=== PATIENT | female | born 1950 | race Caucasian/White ===

== ENCOUNTER 2016-08-25 19:14 | Emergency (ER) | payer MEDICARE, OTHER | END 2016-08-25 19:55 | disposition home or self-care (01) | DX: S90.822A Blister (nonthermal), left foot, initial encounter (principal); S91.302A Unspecified open wound, left foot, initial encounter; S90.821A Blister (nonthermal), right foot, initial encounter; S91.301A Unspecified open wound, right foot, initial encounter; X58.XXXA Exposure to other specified factors, initial encounter; L56.8 Other specified acute skin changes due to ultraviolet radiation; X32.XXXA Exposure to sunlight, initial encounter; Y92.89 Other specified places as the place of occurrence of the external cause; I10 Essential (primary) hypertension; Z86.718 Personal history of other venous thrombosis and embolism ==

== ENCOUNTER 2016-09-22 18:02 | Outpatient (CLI) | payer MEDICARE, OTHER | END 2016-09-22 18:03 | disposition EMS.NT | DX: Z03.89 Encounter for observation for other suspected diseases and conditions ruled out (principal); W03.XXXA Other fall on same level due to collision with another person, initial encounter; Y92.009 Unspecified place in unspecified non-institutional (private) residence as the place of occurrence of the external cause ==

== ENCOUNTER 2017-11-05 20:14 | Emergency (ER) | payer MEDICARE, OTHER ==
[2017-11-05 20:41] VITALS: BP 139/86
--- NOTE | 2017-11-05 21:32 | ED Physician Documentation ---
PD HPI SKIN - Stated complaint Stated Complaint: RASH ON BODY - Chief complaint Chief Complaint: Wound - History obtained from History obtained from: Patient - History of Present Illness Timing - onset: How many days ago (5 days ago) Timing - duration: Days Timing - details: Gradual onset Pain level max: 0 Pain level now: 0 Location: Scalp, RUE, LUE Quality / character: Burning Contributing factors: Unknown Similar symptoms before: Has not had sx before Recently seen: Not recently seen - Additional information Additional information: c/o rash left forearm which has spread locally and earlier this morning noted similar rash on right FA and forehead Review of Systems Constitutional: denies: Reviewed and negative Respiratory: reports: Reviewed and negative Skin: reports: Rash PD PAST MEDICAL HISTORY - Past Medical History Cardiovascular: Hypertension, Deep vein thrombosis - Past Surgical History 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 - Present Medications Home Medications: Ambulatory Orders Medication Instructions Recorded Confirmed Hydrochlorothiazide 25 mg PO DAILY 09/19/14 08/25/16 Propranolol [Inderal] 80 mg PO DAILY 09/19/14 08/25/16 Doxycycline Hyclate 50 mg PO BID 08/25/16 08/25/16 hydrOXYzine PAMOATE [Vistaril] 25 mg PO Q6H PRN #20 capsule 11/05/17 predniSONE [Prednisone] 40 mg PO DAILY #8 tablet 11/05/17 - Allergies Allergies/Adverse Reactions: Allergies Allergy/AdvReac Type Severity Reaction Status Date / Time No Known Drug Allergies Allergy Verified 09/19/14 16:52 - Social History Does the pt smoke?: No Smoking Status: Never smoker Does the pt drink ETOH?: Yes Does the pt have substance abuse?: No - Immunizations Immunizations are current?: Yes PD ED PE NORMAL - Vitals Vital signs reviewed: Yes - General General: Alert and oriented X 3, No acute distress, Well developed/nourished PD ED PE EXPANDED - Derm Derm: Other (Confluent erythema left FA, extensor surface only. Fainter confluent erythema on right FA, extensor surface only, as well as on cranial- most aspect of forehead and on frontoparietal scalp only where hair parts. These areas are nontender and not hot to touch. There is complete sparing of the area covered by her wristwatch on left FA with sharp margins both proximal and distal to the wristband that correlate precisely with the area covered by the watch) Results - Vitals Vitals: Oxygen O2 Source Room air PD MEDICAL DECISION MAKING - ED course Complexity details: considered differential, d/w patient ED course: Patient is on doxycycline for rosacea, and rash is only noted on extensor surfaces of FA and forehead and scalp. Notably, there is a distinct and complete sparing on the left FA where she wears her watch, and the scalp is affected only along the part of the hair, c/w photodermatitis which would be likely caused by the doxycycline and sun exposure. - Sepsis Event Vital Signs: Oxygen O2 Source Room air Departure - Departure Disposition: 01 Home, Self Care Clinical Impression: Photodermatitis Condition: Good Instructions: ED Dermatitis Non Specific Rash Prescriptions: hydrOXYzine PAMOATE [Vistaril] 25 mg PO Q6H PRN #20 capsule PRN Reason: Itching predniSONE [Prednisone] 40 mg PO DAILY #8 tablet Comments: Contact your supervisor lead burning to discuss follow-up. I suspect the rash is from sunlight exposure combined with the doxycycline you are taking, and I recommend you stop the doxycycline until and unless your doctor advises otherwise. Discharge Date/Time: 11/05/17 22:02
[2017-11-05] MEDS ORDERED: predniSONE 20 MG TABLET PO STA (21:47)
== END 2017-11-05 22:02 | disposition home or self-care (01) ==
LOC: ED 20:14
DX: L56.8 Other specified acute skin changes due to ultraviolet radiation (principal); L53.9 Erythematous condition, unspecified; L71.9 Rosacea, unspecified; I10 Essential (primary) hypertension
CPT/HCPCS: 99283; J7512

== ENCOUNTER 2018-08-03 08:00 | Outpatient (CLI) | payer MEDICARE, OTHER ==
[2018-08-03 18:31] LABS: HB2 TOTAL 11.1 g/dL; HEMOGLOBIN A1C 0.4 g/dL; HEMOGLOBIN A1C % 5.4 % (4.6-6.2)
[2018-08-03 18:51] LABS: ALBUMIN 3.8 g/dL (3.2-5.5); ALBUMIN/GLOBULIN RATIO 0.7 (1.0-2.2); BILIRUBIN,TOTAL 0.8 mg/dL (0.2-1.0); CALCIUM 9.7 mg/dL (8.5-10.3); CREATININE 0.9 mg/dL (0.4-1.0); TOTAL PROTEIN 9.2 g/dL (6.7-8.2)
[2018-08-03 18:58] LABS: BASOPHILS % (AUTO) 0.5 %; EOSINOPHILS % (AUTO) 0.4 %; HGB - HEMOGLOBIN 8.9 g/dL (12.0-16.0); LYMPHOCYTES # (AUTO) 1.4 10^3/uL (1.5-3.5); LYMPHOCYTES % (AUTO) 48.8 %; MEAN CORPUSCULAR HEMOGLOBIN 29.1 pg (27.0-31.0); MEAN CORPUSCULAR VOLUME 88.1 fL (81.0-99.0); MEAN PLATELET VOLUME 10.3 fL (7.9-10.8); MONOCYTES # (AUTO) 0.6 10^3/uL (0.0-1.0); MONOCYTES % (AUTO) 19.7 %; NEUTROPHILS # (AUTO) 0.9 10^3/uL (1.5-6.6); NEUTROPHILS % (AUTO) 30.6 %; PLT - PLATELET COUNT 184 10^3/uL (130-450); RED BLOOD COUNT 3.06 10^6/uL (4.20-5.40); RED CELL DISTRIBUTION WIDTH 15.5 % (12.0-15.0); WHITE BLOOD COUNT 2.9 x10^3/uL (4.8-10.8)
[2018-08-03 19:36] LABS: DIFFERENTIAL COMMENT MANUAL=AUTO DIFF; PLATELET ESTIMATE, MANUAL NORMAL (130-450,000) (NORMAL); PLATELET MORPHOLOGY NORMAL APPEARANCE (NORMAL)
== END 2018-08-03 23:59 | disposition home or self-care (01) ==
LOC: LAB.F 08:00
PROVIDERS: ATTEND Physician Assistant Medical
DX: R23.8 Other skin changes (principal); I10 Essential (primary) hypertension; R73.01 Impaired fasting glucose
CPT/HCPCS: 36415; 80053; 83036; 85025

== ENCOUNTER 2018-08-17 08:36 | Outpatient (CLI) | payer MEDICARE, OTHER ==
--- NOTE | 2018-08-17 12:54 | Mammography Report ---
Reason: AXILLARY LYMPHADENOPATHY Procedure Date: 08/17/2018 Accession Number: [id number] / [id number] Procedure: ROSENDO - Diagnostic Dig Bilat CPT Code: FULL RESULT: EXAM: Diagnostic Dig Bilat DATE: 08/17/2018 9:52 AM CLINICAL HISTORY: Diagnostic examination. Axillary lymphadenopathy, palpable. TECHNIQUE: (B) - Bilateral CC, laterally exaggerated CC, MLO views were obtained. COMPARISON: 01/02/2011 through 11/28/2009. PARENCHYMAL PATTERN: (A) - The breast(s) demonstrate(s) scattered fibroglandular densities. FINDINGS: The MLO images demonstrate bulky axillary lymphadenopathy bilaterally. Biopsy clips are seen in both breasts. There are no suspicious masses, calcifications, or areas of distortion within the glandular breast on either side. Focused bilateral axillary ultrasound is performed which demonstrates bulky lymphadenopathy, accessible to ultrasound-guided biopsy. IMPRESSION: Highly suggestive for malignancy. BI-RADS category 5. RECOMMENDATION: (BIOPSY) - BI-RADS CATEGORY: (5) - Highly suggestive for malignancy. STANDARD QUALIFYING STATEMENTS: 1. This examination was not reviewed with the aid of Computer-Aided Detection (CAD). 2. A negative or benign imaging report should not preclude biopsy if clinically suspicious findings are present. 3. Dense breasts may obscure an underlying neoplasm. 4. This examination was reviewed with the aid of 3D breast imaging (tomosynthesis).
== END 2018-08-17 08:37 | disposition home or self-care (01) ==
LOC: DI 08:36
PROVIDERS: ATTEND Physician Assistant Medical
DX: R59.0 Localized enlarged lymph nodes (principal)
CPT/HCPCS: 76642; 77066

== ENCOUNTER 2018-08-31 11:32 | Outpatient (CLI) | payer MEDICARE, OTHER ==
[2018-08-31] MEDS ORDERED: BUFFERED LIDOCAINE 10 ML SYRINGE ONE (13:28)
[2018-08-31] MEDS ORDERED: BUPIVACAINE 0.5%-EPI 1:200000 PF 10 ML VIAL ONE (13:29)
--- NOTE | 2018-09-02 16:12 | Ultrasound Report ---
Reason: ENLARGED LYMPH NODES Procedure Date: 08/31/2018 Accession Number: [id number] / [id number] Procedure: US - Needle Bx Lymph Node CPT Code: FULL RESULT: PROCEDURE: Ultrasound-guided needle biopsy right axillary lymph node mass. CLINICAL DATA: Targeted lymphadenopathy in the right axilla as seen on mammography. Informed consent was obtained. Using standard aseptic technique, both 1% buffered lidocaine and Sensorcaine were injected into the axilla for local anesthesia. A small damian was made in the skin with a #11 blade. A 18-gauge [employer] biopsy device was used to obtain 4 specimens. The wound was dressed and ice applied. The patient was observed for approximately 15 minutes, then was discharged from diagnostic imaging Department in good condition following instructions on wound care and obtaining biopsy results. The patient is scheduled to receive the biopsy results from the referring physician. The tissue was sent for histologic analysis. IMPRESSION: Ultrasound-guided biopsy of right axillary lymphadenopathy. AN ADDENDUM WILL BE MADE TO THIS REPORT WHEN PATHOLOGY IS REVIEWED TO ESTABLISH CONCORDANCE.
== END 2018-08-31 11:33 | disposition home or self-care (01) ==
LOC: DI 11:32
PROVIDERS: ATTEND Physician Assistant Medical
DX: C85.84 Other specified types of non-Hodgkin lymphoma, lymph nodes of axilla and upper limb (principal)
CPT/HCPCS: 38505

== ENCOUNTER 2019-05-15 09:38 | Emergency (ER) | payer MEDICARE, OTHER ==
[2019-05-15] MEDS ORDERED: SODIUM CHLORIDE 0.9% 1,000 ML IV ONE (10:14)
[2019-05-15] MEDS ORDERED: KETOROLAC 30 MG/ML VIAL IVP STA (10:14)
--- NOTE | 2019-05-15 10:15 | ED Physician Documentation ---
History of Present Illness - Stated complaint Stated Complaint: FEVER/NECK/HEAD PX - Chief complaint Chief Complaint: General - History obtained from History obtained from: Patient - Additonal information Additional information: This is a 68-year-old woman who presents with her son complaints that about 3 days ago she developed what she thought was just a stiff neck but it seems to be getting worse to the point now that she can even move it. There was not any unusual activity that she can place this on. She phoned her oncology team at the cancer center in [place] yesterday and they told her that she should follow- up with her primary care provider for pain management. She is just been using extra strength Tylenol at home. She does have a history of non-Hodgkin's lymphoma and monitors for fevers due to that she had a fever last night of 101.7. It was 99.3 this morning. She is not currently on chemotherapy. She does have a headache that is wrapping up over the back of her head. Her legs feel little weak and just shaky from the pain. No pain radiating down the arms. She denies any recent sore throat, congestion, cough, dysuria, abdominal pain, nausea or vomiting. Review of Systems Constitutional: reports: Fever Ears: denies: Ear pain Nose: denies: Rhinorrhea / runny nose, Congestion Throat: denies: Sore throat Cardiac: denies: Palpitations Respiratory: denies: Cough GI: denies: Abdominal Pain, Nausea : denies: Dysuria Musculoskeletal: reports: Neck pain. denies: Extremity pain Neurologic: reports: Headache. 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 - Present Medications Home Medications: Ambulatory Orders Medication Instructions Recorded Confirmed Hydrochlorothiazide 25 mg PO DAILY 09/19/14 05/15/19 Propranolol [Inderal] 80 mg PO DAILY 09/19/14 05/15/19 Cetirizine [ZyrTEC] 10 mg PO DAILY PRN 08/26/18 05/15/19 Multivit-Min/Iron Fum/Folic AC 2 tab PO DAILY 05/01/19 01/18/20 [Yjitp-Owajtla-Eyatcgun Tablet] Cyclobenzaprine [Flexeril] 10 mg PO TID PRN #20 tablet 05/15/19 Hydrocodone/Acetaminophen 1 - 2 each PO Q6H PRN #10 tablet 05/15/19 [Hydrocodon-Acetaminophen 5-325] - Allergies Allergies/Adverse Reactions: Allergies Allergy/AdvReac Type Severity Reaction Status Date / Time tetracycline Allergy Unknown Verified 05/15/19 09:47 - Social History Does the pt smoke?: No Smoking Status: Never smoker Does the pt drink ETOH?: Yes Does the pt have substance abuse?: No - Immunizations Immunizations are current?: Yes PD ED PE NORMAL - Vitals Vital signs reviewed: Yes - General General: Alert and oriented X 3, No acute distress, Well developed/nourished, Other (Patient is noted to be sitting on the exam table very stiffly not turning her head from side to side.) - HEENT HEENT: Atraumatic, PERRL, EOMI, Moist mucous membranes, Pharynx benign - Neck Neck: Other (There is tenderness with palpation through the levator scapula and trapezius muscles bilaterally to the base of the calvarium across the occipital ridge. There is no rash. Limited range of motion due to this pain.). No: No adenopathy (There is a multitude of enlarged lymph nodes anterior, posterior cervical and supraclavicular consistent with her non-Hodgkin's lymphoma. These have been present prior to today.) - Cardiac Cardiac: RRR, No murmur - Respiratory Respiratory: No respiratory distress, Clear bilaterally - Abdomen Abdomen: Normal bowel sounds, Soft - Back Back: No CVA TTP - Derm Derm: No rash - Extremities Extremities: No deformity, No tenderness to palpate, Normal ROM s pain, No edema - Neuro Neuro: Alert and oriented X 3, medical charge entry specialist 2-12 intact, No motor deficit, No sensory deficit, Normal speech - Psych Psych: Normal mood, Normal affect Results - Vitals Vitals: Vital Signs - 24 hr 05/15/19 05/15/19 09:44 12:24 Temperature 36.9 C 37.6 C H Heart Rate 86 67 Respiratory 16 24 Rate Blood Pressure 167/90 H 165/68 H O2 Saturation 100 99 Oxygen O2 Source Room air - Labs Labs: Laboratory Tests 05/15/19 05/15/19 05/15/19 10:27 10:27 10:27 WBC 6.1 RBC 2.73 L Hgb 8.5 L Hct 25.7 L MCV 94.1 MCH 31.1 H MCHC 33.1 RDW 16.0 H Plt Count 270 MPV 9.5 Neut # (Auto) Not Reportable Lymph # (Auto) Not Reportable [place] # (Auto) Not Reportable Eos # (Auto) Not Reportable Baso # (Auto) Not Reportable Absolute Nucleated RBC Not Reportable Total Counted 100 Band Neuts % (Manual) 3 Abnorm Lymph % (Manual) 4 Metamyelocytes % 1 H Nucleated RBC % Not Reportable Neutrophils # (Manual) 2.4 Lymphocytes # (Manual) 3.1 Monocytes # (Manual) 0.5 Eosinophils # (Manual) 0.1 Basophils # (Manual) 0.0 Differential Comment MANUAL DIFFERENTIAL Manual Slide Review Indicated WBC Morphology NORMAL APPEARANCE Platelet Estimate NORMAL (130-450,000) Platelet Morphology 1+ LARGE PLATELETS RBC Morph Micro Appear 1+ [place] Sodium 138 Potassium 4.1 Chloride 107 Carbon Dioxide 21 Anion Gap 10.0 BUN 25 H Creatinine 1.0 Estimated GFR (MDRD) 55 L Glucose 112 H Lactic Acid 1.2 Calcium 9.9 Total Bilirubin 0.9 AST 36 ALT < 10 L Alkaline Phosphatase 66 Total Protein 10.1 H Albumin 3.5 Globulin 6.6 H Albumin/Globulin Ratio 0.5 L Lipase 59 H Urine Color Urine Clarity Urine pH Ur Specific [place] Urine Protein Urine Glucose (UA) Urine Ketones Urine Occult Blood Urine Nitrite Urine Bilirubin Urine Urobilinogen Ur Leukocyte Esterase Urine RBC Urine WBC Ur Squamous Epith Cells Urine Bacteria Ur Microscopic Review Urine Culture Comments 05/15/19 11:00 WBC RBC Hgb Hct MCV MCH MCHC RDW Plt Count MPV Neut # (Auto) Lymph # (Auto) [place] # (Auto) Eos # (Auto) Baso # (Auto) Absolute Nucleated RBC Total Counted Band Neuts % (Manual) Abnorm Lymph % (Manual) Metamyelocytes % Nucleated RBC % Neutrophils # (Manual) Lymphocytes # (Manual) Monocytes # (Manual) Eosinophils # (Manual) Basophils # (Manual) Differential Comment Manual Slide Review WBC Morphology Platelet Estimate Platelet Morphology RBC Morph Micro Appear Sodium Potassium Chloride Carbon Dioxide Anion Gap BUN Creatinine Estimated GFR (MDRD) Glucose Lactic Acid Calcium Total Bilirubin AST ALT Alkaline Phosphatase Total Protein Albumin Globulin Albumin/Globulin Ratio Lipase Urine Color YELLOW Urine Clarity CLEAR Urine pH 5.5 Ur Specific [place] 1.025 Urine Protein 100 H Urine Glucose (UA) NEGATIVE Urine Ketones NEGATIVE Urine Occult Blood MODERATE H Urine Nitrite NEGATIVE Urine Bilirubin NEGATIVE Urine Urobilinogen 0.2 (NORMAL) Ur Leukocyte Esterase NEGATIVE Urine RBC 0-5 Urine WBC 0-3 Ur Squamous Epith Cells MOD Squamous H Urine Bacteria Few Ur Microscopic Review INDICATED Urine Culture Comments NOT INDICATED - Rads (name of study) cxr Radiology: EMP read contemporaneously (Negative acute), See rad report PD MEDICAL DECISION MAKING - ED course Complexity details: reviewed results, re-evaluated patient, d/w patient, d/w family ED course: Patient was initially given 30 of Toradol IV as well as a Flexeril 10 mg. Her hemoglobin is only 8.5 which is chronic. White blood cell count is normal. Urine showed some blood but there are a lot of squamous epithelial cells and no sign of infection. Her history and clinical exam certainly are not consistent with any type of meningitis. She reports 0 relief with the Toradol and Flexeril although she is clearly moving her neck a little bit more when I went in to reevaluate her. She was given hydrocodone tablet and will reassess after that. Patient is getting some relief with the hydrocodone. She reports another fever here but it was only 99. At this point I do not have a clear etiology for any type of infectious process. Recommended that we monitor her temperature at home. She will be given a prescription for Flexeril and a few hydrocodone tablets and follow-up with her primary care provider on Friday if she still having pain. If she has recurrent fevers then she should be reevaluated. She states understanding. Departure - Departure Disposition: Home, Self Care Clinical Impression: Cervical muscle strain Qualifiers: Encounter type: initial encounter Qualified Code(s): S16.1XXA - Strain of muscle, fascia and tendon at neck level, initial encounter Condition: Good Instructions: ED Neck Pain No Trauma Follow-Up: Lizzette Beaulieu PA-C [Primary Care Provider] - Prescriptions: Cyclobenzaprine [Flexeril] 10 mg PO TID PRN #20 tablet PRN Reason: Spasms Hydrocodone/Acetaminophen [Hydrocodon-Acetaminophen 5-325] 1 - 2 each PO Q6H PRN #10 tablet PRN Reason: pain Comments: I would apply ice to the back your neck and the back your head. Take the Flexeril as a muscle relaxer if it is not giving you adequate pain relief after 30 to 60 minutes you can add a hydrocodone tablet but do not drive or operate machinery when you are taking those medications. Also the hydrocodone contains Tylenol so he should not use additional Tylenol. Continue to watch her temperature at home. If you have recurrent fevers over 100.5 you should be reevaluated. Follow-up with your primary care provider on Friday if you are still experiencing neck pain.
[2019-05-15] MEDS ORDERED: CYCLOBENZAPRINE 10 MG TABLET PO STA (10:18)
[2019-05-15 10:39] LABS: BASOPHILS % (AUTO) 0.7 %; EOSINOPHILS % (AUTO) 0.3 %; HGB - HEMOGLOBIN 8.5 g/dL (12.0-16.0); LYMPHOCYTES % (AUTO) 42.4 %; MEAN CORPUSCULAR HEMOGLOBIN 31.1 pg (27.0-31.0); MEAN CORPUSCULAR HGB CONC 33.1 g/dL (32.0-36.0); MEAN CORPUSCULAR VOLUME 94.1 fL (81.0-99.0); MEAN PLATELET VOLUME 9.5 fL (7.9-10.8); MONOCYTES % (AUTO) 24.1 %; NEUTROPHILS % (AUTO) 31.8 %; PLT - PLATELET COUNT 270 10^3/uL (130-450); RED BLOOD COUNT 2.73 10^6/uL (4.20-5.40); WHITE BLOOD COUNT 6.1 x10^3/uL (4.8-10.8)
--- NOTE | 2019-05-15 10:46 | XRAY Report ---
Reason: cough Procedure Date: 05/15/2019 Accession Number: [id number] / [id number] Procedure: XR - Chest 2 View X-Ray CPT Code: 14884 Final Report FULL RESULT: EXAM: CHEST RADIOGRAPHY EXAM DATE: 05/15/2019 10:37 AM. CLINICAL HISTORY: Cough. COMPARISON: None. TECHNIQUE: 2 views. FINDINGS: Lungs/Pleura: Central bronchial wall thickening noted. No superimposed focal consolidation. No pleural effusion or pneumothorax. Mediastinum: Heart and mediastinal contours are unremarkable. Other: None. IMPRESSION: 1. Central bronchial wall thickening could reflect underlying reactive airways or bronchitis. No evidence for pneumonia. RADIA
[2019-05-15 10:48] LABS: ALBUMIN 3.5 g/dL (3.2-5.5); ALBUMIN/GLOBULIN RATIO 0.5 (1.0-2.2); ALKALINE PHOSPHATASE 66 IU/L (42-121); ALT ALANINE AMINOTRANSFERASE < 10 IU/L (10-60); AST ASPARTATE AMINOTRANSFERASE 36 IU/L (10-42); BILIRUBIN,TOTAL 0.9 mg/dL (0.2-1.0); BUN - BLOOD UREA NITROGEN 25 mg/dL (6-20); CALCIUM 9.9 mg/dL (8.5-10.3); CARBON DIOXIDE - CO2 21 mmol/L (21-32); CHLORIDE 107 mmol/L (101-111); GFR - MDRD 55 (>89); GLUCOSE 112 mg/dL (70-100); LIPASE 59 U/L (22-51); SODIUM 138 mmol/L (135-145); TOTAL PROTEIN 10.1 g/dL (6.7-8.2)
[2019-05-15 11:38] LABS: BILIRUBIN,URINE NEGATIVE (NEGATIVE); GLUCOSE, URINE (UA) NEGATIVE (NEGATIVE); KETONES,URINE (UA) NEGATIVE (NEGATIVE); LEUKOCYTE ESTERASE, URINE NEGATIVE (NEGATIVE); NITRITE,URINE NEGATIVE (NEGATIVE); OCCULT BLOOD,URINE MODERATE (NEGATIVE); PH,URINE 5.5 PH (5.0-7.5); PROTEIN,URINE 100 mg/dL (NEGATIVE); UROBILINOGEN,URINE 0.2 (NORMAL) E.U./dL (NORMAL)
[2019-05-15 11:49] LABS: ABNORMAL LYMPHS % (MANUAL) 4 %; BAND NEUTROPHILS % (MANUAL) 3 %; EOSINOPHILS # (MANUAL) 0.1 10^3/uL (0-0.7); LYMPHOCYTES # (MANUAL) 3.1 10^3/uL (1.5-3.5); LYMPHOCYTES % (MANUAL) 46 %; METAMYELOCYTES % (MANUAL) 1 %; MONOCYTES # (MANUAL) 0.5 10^3/uL (0.0-1.0)
[2019-05-15 11:51] LABS: PLATELET ESTIMATE, MANUAL NORMAL (130-450,000) (NORMAL)
[2019-05-15 11:52] LABS: PLATELET MORPHOLOGY 1+ LARGE PLATELETS (NORMAL)
[2019-05-15 11:53] LABS: DIFFERENTIAL COMMENT MANUAL DIFFERENTIAL; RBC MORPHOLOGY (MULTIPLE) 1+ ROULEAUX (NORMAL)
[2019-05-15 11:57] LABS: CLARITY,URINE CLEAR (CLEAR)
[2019-05-15 11:58] LABS: BACTERIA,URINE Few /HPF (None Seen); RBC,URINE 0-5 /HPF (0-5); SQUAMOUS EPITHELIAL CELL,UR MOD Squamous (<= Few)
[2019-05-15] MEDS ORDERED: HYDROcod/ACETAM 5/325 MG TABLET PO STA (12:35)
[2019-05-15 14:34] VITALS: BP 155/71
== END 2019-05-15 14:44 | disposition home or self-care (01) ==
LOC: ED 09:38
DX: S16.1XXA Strain of muscle, fascia and tendon at neck level, initial encounter (principal); X58.XXXA Exposure to other specified factors, initial encounter; C85.91 Non-Hodgkin lymphoma, unspecified, lymph nodes of head, face, and neck; I10 Essential (primary) hypertension
CPT/HCPCS: 36415; 71046; 80053; 81001; 83605; 83690; 85025; 87040; 96361; 96374; 99284; A9270; 81003; 87086

== ENCOUNTER 2019-06-02 11:25 | Emergency (ER) | payer MEDICARE, OTHER ==
[2019-06-02] MEDS ORDERED: SODIUM CHLORIDE 0.9% 1,973.13 ML IV STA (11:47)
--- NOTE | 2019-06-02 11:51 | ED Physician Documentation ---
History of Present Illness - Stated complaint Stated Complaint: HEAD/NECK PX - Chief complaint Chief Complaint: General - History obtained from History obtained from: Patient (Patient is a 68-year-old recently started on chemotherapy for lymphoma. Her first regimen was last Friday and . She recently was admitted to [facility] for gastric inflammation at that time was discovered to have anemia and had blood transfusion. She is here per her oncologist recommendation because of the development of neck pain with limited range of motion. There is worry about infection. Patient noticed this similar neck pain about 2 weeks ago, as she was treated with antibiotic and [facility] for the GI infection or inflammation, her neck pain improve. According to the patient and family member at bedside, there was a low-grade fever of 99 at home. This was yesterday. In the emergency room patient is alert and oriented x3. GCS 15. Not in distress.), Family - History of Present Illness Timing: How many days ago (2) Review of Systems Ten Systems: 10 systems reviewed and negative Constitutional: reports: Fever, Reviewed and negative Eyes: reports: Reviewed and negative Ears: reports: Reviewed and negative Nose: reports: Reviewed and negative Throat: reports: Reviewed and negative Cardiac: reports: Reviewed and negative Respiratory: reports: Reviewed and negative GI: reports: Reviewed and negative : reports: Reviewed and negative Skin: reports: Reviewed and negative Musculoskeletal: reports: Neck pain Neurologic: reports: Reviewed and negative Psychiatric: reports: Reviewed and negative Endocrine: reports: Reviewed and negative Immunocompromised: reports: Reviewed and negative PD PAST MEDICAL HISTORY - Past Medical History Cardiovascular: Hypertension, Deep vein thrombosis Other Past Medical History: lymphoma - Past Surgical History 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 - Present Medications Home Medications: Ambulatory Orders Medication Instructions Recorded Confirmed Hydrochlorothiazide 25 mg PO DAILY 09/19/14 05/15/19 Propranolol [Inderal] 80 mg PO DAILY 09/19/14 05/15/19 Cetirizine [ZyrTEC] 10 mg PO DAILY PRN 08/26/18 05/15/19 Multivit-Min/Iron Fum/Folic AC 2 tab PO DAILY 08/26/18 05/15/19 [Hsemn-Kubyaef-Pycshtzb Tablet] Cyclobenzaprine [Flexeril] 10 mg PO TID PRN #20 tablet 05/15/19 Hydrocodone/Acetaminophen 1 - 2 each PO Q6H PRN #10 tablet 05/15/19 [Hydrocodon-Acetaminophen 5-325] HYDROmorphone [Dilaudid] 2 mg PO Q4H #15 tablet 06/02/19 Ondansetron Odt [Zofran] 4 mg TL Q6H PRN #10 tablet 06/02/19 Potassium Chloride [K-Dur] 40 meq PO ONCE #30 tablet 06/02/19 - Allergies Allergies/Adverse Reactions: Allergies Allergy/AdvReac Type Severity Reaction Status Date / Time tetracycline Allergy Unknown Verified 06/02/19 11:33 - Social History Does the pt smoke?: No Smoking Status: Never smoker Does the pt drink ETOH?: Yes Does the pt have substance abuse?: No - Immunizations Immunizations are current?: Yes PD ED PE NORMAL - Vitals Vital signs reviewed: Yes - General General: Alert and oriented X 3, No acute distress, Well developed/nourished - HEENT HEENT: Atraumatic, PERRL, EOMI - Neck Neck: No bony TTP, No adenopathy, Other (Minimum range of motion of the neck due to stiffness and pain,) - Cardiac Cardiac: RRR, No murmur - Respiratory Respiratory: Clear bilaterally - Abdomen Abdomen: Normal bowel sounds, Soft, Non tender, Non distended - Derm Derm: Warm and dry - Extremities Extremities: No deformity - Neuro Neuro: Alert and oriented X 3 - Psych Psych: Normal mood, Normal affect Results - Vitals Vitals: Vital Signs - 24 hr 06/02/19 11:29 Temperature 36.9 C Heart Rate 60 Respiratory 17 Rate Blood Pressure 105/61 O2 Saturation 100 Oxygen O2 Source Room air - Labs Labs: Laboratory Tests 06/02/19 06/02/19 06/02/19 12:17 12:17 12:17 WBC 11.3 H RBC 2.77 L Hgb 8.6 L Hct 26.9 L MCV 97.1 MCH 31.0 MCHC 32.0 RDW 18.8 H Plt Count 293 MPV 10.1 Neut # (Auto) Not Reportable Lymph # (Auto) Not Reportable [place] # (Auto) Not Reportable Eos # (Auto) Not Reportable Baso # (Auto) Not Reportable Absolute Nucleated RBC Not Reportable Total Counted 100 Band Neuts % (Manual) 24 H Reactive Lymphs % (Man) 1 Abnorm Lymph % (Manual) 0 Myelocytes % 1 H Nucleated RBC % Not Reportable Neutrophils # (Manual) 8.7 H Lymphocytes # (Manual) 0.2 L Monocytes # (Manual) 2.1 H Eosinophils # (Manual) 0.0 Basophils # (Manual) 0.1 Differential Comment MANUAL DIFFERENTIAL RBC Morph Micro Appear 3+ ANISOCYTOSIS Sodium 139 Potassium 3.1 L Chloride 102 Carbon Dioxide 23 Anion Gap 14.0 H BUN 19 Creatinine 0.9 Estimated GFR (MDRD) 62 L Glucose 111 H Lactic Acid 1.3 Calcium 8.5 Total Bilirubin 0.6 AST 38 ALT 14 Alkaline Phosphatase 95 Total Protein 7.8 Albumin 3.1 L Globulin 4.7 H Albumin/Globulin Ratio 0.7 L PD MEDICAL DECISION MAKING - ED course Complexity details: d/w patient, d/w family ED course: 68-year-old with multiple medical problems including lymphoma pulmonary embolism in the past, presented to emergency room with recurrent neck pain with low-grade fever. Initial differential diagnosis would include meningitis, encephalitis, sepsis, electrolyte myology, cervical strain, acute on chronic neck and back pain. Patient is reassessed at 1245, she is disclose laboratory result with no fever, mildly elevated white blood cell of 13, lactic acid, sed rate are normal,We talked about work-up for meningitis including lumbar puncture. Patient seems to be very reluctant for the procedure. We talked about the chronicity of the neck pain and neck stiffness being about 1 month apart. If this indeed meningitis, this may not be the case however one cannot excluded without CSF fluid studies. They would like to interact with the oncologist for further recommendation in the meantime and treated for neck pain. Per patient's request, I have spoken to Dr. Monroy at 1:00, eyeballing to him patient's clinical presentation with neck spasm that has been recurrent, like a pain medication at home, no objective fever in the ED, I read him the laboratory result including white blood cell count, sed rate, lactic acid, he and I agree that patient may not necessarily need to have meningitis work-up. Patient does have a blood drawn on Friday. He encouraged patient to call the clinic if necessary for further management. This conversation is conveyed to the patient and Her familyAt bedside. They agree with this approach. Patient just received 1 of Dilaudid, pain has improved. We will also give her oral potassium supplements. When pain is better controlled, we will release her home with pain prescription. Departure - Departure Disposition: Home, Self Care Clinical Impression: Hypokalemia, Neck muscle spasm Condition: Good Instructions: Hypokalemia Dc, Cervical Strain Prescriptions: HYDROmorphone [Dilaudid] 2 mg PO Q4H #15 tablet Ondansetron Odt [Zofran] 4 mg TL Q6H PRN #10 tablet PRN Reason: Nausea / Vomiting Potassium Chloride [K-Dur] 40 meq PO ONCE #30 tablet Comments: Please take your potassium supplement, and follow-up with your oncologist next week as scheduled for you.
[2019-06-02 12:31] LABS: BASOPHILS % (AUTO) 0.7 %; EOSINOPHILS % (AUTO) 0.3 %; HGB - HEMOGLOBIN 8.6 g/dL (12.0-16.0); LYMPHOCYTES % (AUTO) 4.2 %; MEAN CORPUSCULAR VOLUME 97.1 fL (81.0-99.0); MEAN PLATELET VOLUME 10.1 fL (7.9-10.8); MONOCYTES % (AUTO) 21.6 %; NEUTROPHILS % (AUTO) 71.9 %; PLT - PLATELET COUNT 293 10^3/uL (130-450); RED BLOOD COUNT 2.77 10^6/uL (4.20-5.40); RED CELL DISTRIBUTION WIDTH 18.8 % (12.0-15.0); WHITE BLOOD COUNT 11.3 x10^3/uL (4.8-10.8)
[2019-06-02 12:37] LABS: ABNORMAL LYMPHS % (MANUAL) 0 %
[2019-06-02 12:40] LABS: ALBUMIN 3.1 g/dL (3.2-5.5); ALBUMIN/GLOBULIN RATIO 0.7 (1.0-2.2); BILIRUBIN,TOTAL 0.6 mg/dL (0.2-1.0); CALCIUM 8.5 mg/dL (8.5-10.3); CREATININE 0.9 mg/dL (0.4-1.0); TOTAL PROTEIN 7.8 g/dL (6.7-8.2)
[2019-06-02] MEDS ORDERED: HYDROmorphone 1 MG/ML CARPUJECT IVP STA (12:52)
[2019-06-02 13:08] LABS: BAND NEUTROPHILS % (MANUAL) 24 %; BASOPHILS # (MANUAL) 0.1 10^3/uL (0-0.1); BASOPHILS % (MANUAL) 1 %; LYMPHOCYTES # (MANUAL) 0.2 10^3/uL (1.5-3.5); LYMPHOCYTES % (MANUAL) 1 %; MONOCYTES # (MANUAL) 2.1 10^3/uL (0.0-1.0); MYELOCYTES % (MANUAL) 1 %; RBC MORPHOLOGY (MULTIPLE) 3+ ANISOCYTOSIS (NORMAL)
[2019-06-02] MEDS ORDERED: POTASSIUM CHLORIDE 20 MEQ TABLET PO STA (13:08)
[2019-06-02 13:09] LABS: DIFFERENTIAL COMMENT MANUAL DIFFERENTIAL
[2019-06-02 13:50] VITALS: BP 191/79
== END 2019-06-02 13:51 | disposition home or self-care (01) ==
LOC: ED 11:25
DX: M62.830 Muscle spasm of back (principal); M54.2 Cervicalgia; E87.6 Hypokalemia; C85.90 Non-Hodgkin lymphoma, unspecified, unspecified site; I10 Essential (primary) hypertension; Z86.711 Personal history of pulmonary embolism
CPT/HCPCS: 36415; 80053; 81599; 83605; 85025; 87040; 99283; 99284; A9270; J1170

== ENCOUNTER 2019-06-04 14:44 | Emergency (ER) | payer MEDICARE, OTHER ==
[2019-06-04] MEDS ORDERED: VANCOMYCIN INJ 1 GM in SODIUM CHLORIDE 0.9% 500 ML IV STA (15:28)
[2019-06-04] MEDS ORDERED: KETOROLAC 30 MG/ML VIAL IVP STA (15:28)
[2019-06-04] MEDS ORDERED: SODIUM CHLORIDE 0.9% 1,000 ML IV ONE (15:28)
[2019-06-04] MEDS ORDERED: CEFEPIME 1 GM in SODIUM CHLORIDE 0.9% MINIBAG 100 ML IV STA (15:28)
[2019-06-04] MEDS ORDERED: DEXAMETHASONE 10 MG/ML VIAL IVP STA (15:28)
--- NOTE | 2019-06-04 15:34 | ED Physician Documentation ---
History of Present Illness - Stated complaint Stated Complaint: ABNORMAL LABS - Chief complaint Chief Complaint: General - History obtained from History obtained from: Patient, Family - History of Present Illness Timing: How many days ago (10) - Additonal information Additional information: 68-year-old female with a recent diagnosis of non-Hodgkin's lymphoma is undergoing treatment at the [facility] and has completed her first round of chemotherapy. She did end up having some neck pain associated with this at the time of her initial evaluation at the [place]. At that time she had a infection in her intestines and was treated with some antibiotic and she felt that her neck pain got better. She was discharged from the hospital she has had some increase in her neck pain over the last 3 days and was seen here in the emergency department 2 days ago and evaluated by Dr. Almonte. At that time blood cultures were obtained and the oncologist was consulted recommended not doing a spinal tap. The patient did end up having gram-positive bacilli growing from her blood cultures. She has not had relief of her pain and continues to have worsening of the pain. She has been taking some Dilaudid for pain control and this is not helping either.She does think that the lymph nodes that were under her arms have shrunk considerably since starting her chemo. In talking with her oncologist her neck pain preceded the initiation of her treatment for the lymphoma last week. She was in the hospital for GI bleeding when treatment was initiated. Review of Systems Constitutional: reports: Chills, Myalgias, Fatigue. denies: Fever Eyes: denies: Decreased vision Ears: reports: Ear pain Nose: denies: Rhinorrhea / runny nose, Congestion Throat: denies: Sore throat Cardiac: denies: Chest pain / pressure, Palpitations Respiratory: denies: Dyspnea, Cough GI: denies: Abdominal Pain, Nausea, Vomiting, Constipation, Diarrhea : denies: Dysuria, Frequency Skin: denies: Rash Musculoskeletal: reports: Neck pain. 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 - Present Medications Home Medications: Ambulatory Orders Medication Instructions Recorded Confirmed Hydrochlorothiazide 25 mg PO DAILY 09/19/14 05/15/19 Propranolol [Inderal] 80 mg PO DAILY 09/19/14 05/15/19 Cetirizine [ZyrTEC] 10 mg PO DAILY PRN 08/26/18 05/15/19 Multivit-Min/Iron Fum/Folic AC 2 tab PO DAILY 08/26/18 05/15/19 [Tyxls-Sjyshjr-Gywkfwra Tablet] Cyclobenzaprine [Flexeril] 10 mg PO TID PRN #20 tablet 05/15/19 HYDROmorphone [Dilaudid] 2 mg PO Q4H #15 tablet 06/02/19 Ondansetron Odt [Zofran] 4 mg TL Q6H PRN #10 tablet 06/02/19 Potassium Chloride [K-Dur] 40 meq PO ONCE #30 tablet 06/02/19 Oxycodone HCl/Acetaminophen 1 - 2 each PO Q6H PRN #14 tablet 06/04/19 [Percocet 5-325 mg Tablet] - Allergies Allergies/Adverse Reactions: Allergies Allergy/AdvReac Type Severity Reaction Status Date / Time tetracycline Allergy Unknown Verified 06/04/19 15:05 - Social History Does the pt smoke?: No Smoking Status: Never smoker Does the pt drink ETOH?: Yes Does the pt have substance abuse?: No - Immunizations Immunizations are current?: Yes PD ED PE NORMAL - Vitals Vital signs reviewed: Yes (hypertensive mild ) - General General: Alert and oriented X 3, No acute distress, Well developed/nourished - HEENT HEENT: Atraumatic, PERRL, EOMI, Ears normal, Pharynx benign, Dentition benign, Other (dry mucous membranes ) - Neck Neck: No bony TTP, No adenopathy, Other (mild tenderness to the platysma and the trapezius. The patient is able to move the neck but has pain to any flexion/extention or rotation. 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, No motor deficit, No sensory deficit, Normal speech Eye Opening: Spontaneous Motor: Obeys Commands Verbal: Oriented GCS Score: 15 - Psych Psych: Normal mood, Normal affect Results - Vitals Vitals: Oxygen O2 Source Room air - Labs Labs: Microbiology 06/04/19 18:00 CSF Culture - Final Cerebral Spinal Fluid 06/04/19 16:30 Blood Culture - Preliminary Blood NO GROWTH AFTER 2 DAYS 06/04/19 15:52 Blood Culture - Preliminary Blood NO GROWTH AFTER 2 DAYS Laboratory Tests 06/04/19 06/04/19 06/04/19 15:52 15:52 15:52 WBC 8.2 RBC 2.81 L Hgb 9.0 L Hct 27.4 L MCV 97.5 MCH 32.0 H MCHC 32.8 RDW 18.0 H Plt Count 348 MPV 10.2 Neut # (Auto) Not Reportable Lymph # (Auto) Not Reportable [place] # (Auto) Not Reportable Eos # (Auto) Not Reportable Baso # (Auto) Not Reportable Absolute Nucleated RBC Not Reportable Total Counted 100 Band Neuts % (Manual) 10 Abnorm Lymph % (Manual) 0 Nucleated RBC % Not Reportable Neutrophils # (Manual) 5.9 Lymphocytes # (Manual) 0.7 L Monocytes # (Manual) 1.5 H Eosinophils # (Manual) 0.0 Basophils # (Manual) 0.1 Differential Comment MANUAL DIFFERENTIAL Platelet Estimate NORMAL (130-450,000) Platelet Morphology n RBC Morph Micro Appear 2+ POIKILOCYTOSIS Sodium 135 Potassium 3.9 Chloride 98 L Carbon Dioxide 23 Anion Gap 14.0 H BUN 16 Creatinine 0.8 Estimated GFR (MDRD) 71 L Glucose 102 H Lactic Acid 0.9 Calcium 8.9 Total Bilirubin 0.7 AST 37 ALT 13 Alkaline Phosphatase 96 Total Protein 8.3 H Albumin 3.2 Globulin 5.1 H Albumin/Globulin Ratio 0.6 L Lipase 41 Urine Color Urine Clarity Urine pH Ur Specific [place] Urine Protein Urine Glucose (UA) Urine Ketones Urine Occult Blood Urine Nitrite Urine Bilirubin Urine Urobilinogen Ur Leukocyte Esterase Urine RBC Urine WBC Ur Squamous Epith Cells Urine Bacteria Urine Mucus Ur Microscopic Review Urine Culture Comments CSF Color CSF Clarity Xanthrochromic CSF WBC CSF RBC CSF Cell Count Tube # CSF Glucose CSF Total Protein 06/04/19 06/04/19 17:14 18:00 WBC RBC Hgb Hct MCV MCH MCHC RDW Plt Count MPV Neut # (Auto) Lymph # (Auto) [place] # (Auto) Eos # (Auto) Baso # (Auto) Absolute Nucleated RBC Total Counted Band Neuts % (Manual) Abnorm Lymph % (Manual) Nucleated RBC % Neutrophils # (Manual) Lymphocytes # (Manual) Monocytes # (Manual) Eosinophils # (Manual) Basophils # (Manual) Differential Comment Platelet Estimate Platelet Morphology RBC Morph Micro Appear Sodium Potassium Chloride Carbon Dioxide Anion Gap BUN Creatinine Estimated GFR (MDRD) Glucose Lactic Acid Calcium Total Bilirubin AST ALT Alkaline Phosphatase Total Protein Albumin Globulin Albumin/Globulin Ratio Lipase Urine Color YELLOW Urine Clarity HAZY Urine pH 5.5 Ur Specific [place] 1.010 Urine Protein 30 H Urine Glucose (UA) NEGATIVE Urine Ketones NEGATIVE Urine Occult Blood SMALL H Urine Nitrite NEGATIVE Urine Bilirubin NEGATIVE Urine Urobilinogen 0.2 (NORMAL) Ur Leukocyte Esterase NEGATIVE Urine RBC 6-10 H Urine WBC 0-3 Ur Squamous Epith Cells MOD Squamous H Urine Bacteria Few Urine Mucus Few Strands Ur Microscopic Review INDICATED Urine Culture Comments NOT INDICATED CSF Color COLORLESS CSF Clarity CLEAR Xanthrochromic ABSENT CSF WBC 0 CSF RBC 0 CSF Cell Count Tube # CSF TUBE# 3 CSF Glucose 64 CSF Total Protein 19 - Rads (name of study) chest Radiology: Prelim report reviewed (Impression: Normal single view chest.), EMP read indepedently, See rad report CT head w/o Radiology: Prelim report reviewed (IMPRESSION: No significant intracranial abnormality), EMP read indepedently, See rad report CT soft tissue neck Radiology: Prelim report reviewed (Impression: 1. Interval decrease in size of previously noted enlarged lymph nodes consistent with improvement in lymphoma. No new or enlarging lymph nodes are present in the neck. Ill-defined edema is seen in the retropharyngeal region beginning at the level of the hyoid. This could be infectious in nature. No peripheral enhancement is seen to suggest a formed abscess. Alternatively this could be a manifestation of acute calcific tendinitis of the longus coli muscles. There are no findings in the adjacent cervical spine to suggest that this reflects a manifestation of discitis or vertebral body osteomyelitis.), EMP read indepedently, See rad report Procedures - Lumbar Puncture Position: Laying left side Location: L3-L4, Midline approach Anesthesia: Local lidocaine CSF: Clear Other: Sterile prep and drape, Patient tolerated well, No complications PD MEDICAL DECISION MAKING - ED course Complexity details: reviewed old records, reviewed results, re-evaluated patient, considered differential, d/w patient, d/w family ED course: 68-year-old female with newly diagnosed non-Hodgkin's lymphoma has started her first round of chemo and she has had a transfusion this past week. She has pain in her neck preceding the onset of the treatment and this pain in her neck was significant enough that she was a unable to flex and extend adequately and she has blood cultures positive for gram-positive bacilli. Her oncologist Dr. Monroy is contacted and the case and recommends admission to the hospital with IV antibiotic and lumbar puncture. He had previously recommended against this as the patient had been given a dose of Neulasta and her elevated white count was presumed to be on the basis of that. The patient has returned to the emergency department with positive blood culture, she has persistence of neck pain she has a very stiff neck a lumbar puncture is performed with clear fluid she is administered Toradol and dexamethasone as well as IV cefepime and vancomycin. The patient's white blood cell count today is normal. Chest x-ray is clear urine is clear the patient has no fever and the lumbar puncture shows clear fluid. The blood cultures grew from a single bottle and most likely this represents a contamination. I re-talked to Dr. Monroy and he is in agreement with a plan to discharge the patient to home with close followup. Departure - Departure Disposition: 01 Home, Self Care Clinical Impression: Neck muscle spasm, Bacteremia Condition: Stable Instructions: ED Neck Pain No Trauma Follow-Up: Lizzette Beaulieu PA-C [Primary Care Provider] - Rocael Monroy MD [Physician No Access] - Prescriptions: Oxycodone HCl/Acetaminophen [Percocet 5-325 mg Tablet] 1 - 2 each PO Q6H PRN #14 tablet PRN Reason: pain Discharge Date/Time: 06/04/19 19:55
--- NOTE | 2019-06-04 15:51 | XRAY Report ---
Reason: chest pain Procedure Date: 06/04/2019 Accession Number: [id number] / [id number] Procedure: XR - Chest 1 View X-Ray CPT Code: 89511 Final Report FULL RESULT: EXAM: CHEST RADIOGRAPHY EXAM DATE: 06/04/2019 03:41 PM. CLINICAL HISTORY: Chest pain. COMPARISON: CHEST 2 VIEW 05/15/2019 10:22 AM. TECHNIQUE: 1 view. FINDINGS: Lungs/Pleura: No focal opacities evident. No pleural effusion. No pneumothorax. Mediastinum: Within exam limitations, the cardiomediastinal contour is normal. Other: None. IMPRESSION: Normal single view chest. RADIA
[2019-06-04 16:06] LABS: BASOPHILS % (AUTO) 0.9 %; EOSINOPHILS % (AUTO) 0.4 %; LYMPHOCYTES % (AUTO) 5.2 %; MEAN CORPUSCULAR HGB CONC 32.8 g/dL (32.0-36.0); MEAN CORPUSCULAR VOLUME 97.5 fL (81.0-99.0); MEAN PLATELET VOLUME 10.2 fL (7.9-10.8); MONOCYTES % (AUTO) 22.4 %; NEUTROPHILS % (AUTO) 69.4 %; PLT - PLATELET COUNT 348 10^3/uL (130-450); RED BLOOD COUNT 2.81 10^6/uL (4.20-5.40); WHITE BLOOD COUNT 8.2 x10^3/uL (4.8-10.8)
[2019-06-04 16:08] LABS: ABNORMAL LYMPHS % (MANUAL) 0 %
[2019-06-04 16:10] LABS: ALBUMIN 3.2 g/dL (3.2-5.5); ALBUMIN/GLOBULIN RATIO 0.6 (1.0-2.2); BILIRUBIN,TOTAL 0.7 mg/dL (0.2-1.0); CALCIUM 8.9 mg/dL (8.5-10.3); CREATININE 0.8 mg/dL (0.4-1.0); TOTAL PROTEIN 8.3 g/dL (6.7-8.2)
[2019-06-04] MEDS ORDERED: IOVERSOL 320 100 ML VIAL IVP ONE ×2 (16:33→17:07)
[2019-06-04 16:56] LABS: BAND NEUTROPHILS % (MANUAL) 10 %; BASOPHILS # (MANUAL) 0.1 10^3/uL (0-0.1); BASOPHILS % (MANUAL) 1 %; LYMPHOCYTES # (MANUAL) 0.7 10^3/uL (1.5-3.5); LYMPHOCYTES % (MANUAL) 9 %; MONOCYTES # (MANUAL) 1.5 10^3/uL (0.0-1.0)
[2019-06-04 16:57] LABS: DIFFERENTIAL COMMENT MANUAL DIFFERENTIAL; PLATELET ESTIMATE, MANUAL NORMAL (130-450,000) (NORMAL); PLATELET MORPHOLOGY n (NORMAL)
--- NOTE | 2019-06-04 17:08 | CT Report ---
Reason: headache neck pain Procedure Date: 06/04/2019 Accession Number: [id number] / [id number] Procedure: CT - HEAD WO CPT Code: Final Report FULL RESULT: EXAM: CT HEAD EXAM DATE: 06/04/2019 04:58 PM. CLINICAL HISTORY: Headache neck pain. COMPARISON: None. TECHNIQUE: Multiaxial CT images were obtained from the foramen magnum to the vertex. Reformats: Sagittal and coronal. IV contrast: None. In accordance with CT protocol optimization, one or more of the following dose reduction techniques were utilized for this exam: automated exposure control, adjustment of mA and/or KV based on patient size, or use of iterative reconstructive technique. FINDINGS: Parenchyma: No intraparenchymal hemorrhage. No evidence of mass, midline shift, or CT findings of infarction. Langley-white differentiation is distinct. Extraaxial Spaces: Normal for age. No subdural or epidural collections identified. Ventricles: Normal in size and position. Sinuses and Orbits: Imaged paranasal sinuses, orbits, and mastoids show no significant abnormality. Bones: No evidence of fracture or calvarial defect. Other: None. IMPRESSION: No significant intracranial abnormality. RADIA
[2019-06-04 17:23] LABS: BILIRUBIN,URINE NEGATIVE (NEGATIVE); GLUCOSE, URINE (UA) NEGATIVE (NEGATIVE); KETONES,URINE (UA) NEGATIVE (NEGATIVE); LEUKOCYTE ESTERASE, URINE NEGATIVE (NEGATIVE); NITRITE,URINE NEGATIVE (NEGATIVE); OCCULT BLOOD,URINE SMALL (NEGATIVE); PH,URINE 5.5 PH (5.0-7.5); PROTEIN,URINE 30 mg/dL (NEGATIVE); UROBILINOGEN,URINE 0.2 (NORMAL) E.U./dL (NORMAL)
[2019-06-04 17:27] LABS: CLARITY,URINE HAZY (CLEAR)
[2019-06-04 17:34] LABS: BACTERIA,URINE Few /HPF (None Seen); MUCUS,URINE Few Strands; SQUAMOUS EPITHELIAL CELL,UR MOD Squamous (<= Few)
[2019-06-04 18:13] LABS: CLARITY,CSF CLEAR (CLEAR); COLOR,CSF COLORLESS (COLORLESS); CSF TUBE # CSF TUBE# 3; CSF XANTHOCHROMIA ABSENT (ABSENT); RED BLOOD CELL,CSF 0 /mm^3 (0-1); WHITE BLOOD CELL,CSF 0 /mm^3 (0-5)
[2019-06-04] MEDS ORDERED: HYDROmorphone 1 MG/ML CARPUJECT IVP STA (18:16)
[2019-06-04] MEDS ORDERED: ONDANSETRON 4 MG/2 ML VIAL IVP STA (18:16)
[2019-06-04 18:17] LABS: CSF - GLUCOSE 64 mg/dL (45-70)
--- NOTE | 2019-06-04 19:02 | CT Report ---
Reason: neck pain Procedure Date: 06/04/2019 Accession Number: [id number] / [id number] Procedure: CT - SOFT TISSUE NECK W CPT Code: Final Report FULL RESULT: EXAM: CT SOFT TISSUE NECK WITH CONTRAST. EXAM DATE: 06/04/2019 05:07 PM. HISTORY: Neck pain. COMPARISONS: NECK SOFT TISSUE W/ 08/31/2018 12:51 PM. TECHNIQUE: Routine soft tissue neck CT protocol with contrast. Reconstructions: Coronal and sagittal. IV contrast: Optiray 320 80 mL. In accordance with CT protocol optimization, one or more of the following dose reduction techniques were utilized for this exam: automated exposure control, adjustment of mA and/or KV based on patient size, or use of iterative reconstructive technique. FINDINGS: Lymphadenopathy bilaterally in the neck has improved. 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 No new or enlarging lymph nodes are identified in the neck. Mediastinal lymph nodes seen on the comparison study have decreased in size. The thyroid gland is not enlarged. No mass is present in either submandibular gland or parotid gland. No mass is present in either orbit. No mass is present in the nasopharynx. Parapharyngeal fat is symmetric. No mass is seen in the floor of mouth. Epiglottis is not thickened. Ill-defined edema is seen in the retropharyngeal region beginning at the level of the hyoid and extending down to the level of the cricoid. This is seen anterior to the longus colli muscles. There is no peripheral enhancement. Expected enhancement is seen in the internal jugular vein bilaterally. No enhancing mass is identified in the visualized brain. Degenerative disk disease and osteophyte formation are seen at C5-C6 and C6-C7. No suspicious lytic or blastic region is seen in the cervical vertebral bodies. IMPRESSION: 1. Interval decrease in size of previously noted enlarged lymph nodes consistent with improvement in lymphoma. 2. No new or enlarging lymph nodes are present in the neck. 3. Ill-defined edema is seen in the retropharyngeal region beginning at the level of the hyoid. This could be infectious in nature. No peripheral enhancement is seen to suggest a formed abscess. Alternatively this could be a manifestation of acute calcific tendinitis of the longus colli muscles. There are no findings in the adjacent cervical spine to suggest that this reflects a manifestation of diskitis or vertebral body osteomyelitis. RADIA
[2019-06-04 19:56] VITALS: BP 142/59
== END 2019-06-04 19:55 | disposition home or self-care (01) ==
LOC: ED 14:44
DX: M62.838 Other muscle spasm (principal); M54.2 Cervicalgia; R78.81 Bacteremia; C85.90 Non-Hodgkin lymphoma, unspecified, unspecified site; I10 Essential (primary) hypertension
CPT/HCPCS: 36415; 62270; 70450; 70491; 71045; 80053; 81001; 82945; 83605; 83690; 84157; 85025; 87040; 87070; 87205; 89051; 96361; 96365; 96366; 96368; 96375; 99284; 99285; J1170; J3370; Q9967; 81003; 87086

== ENCOUNTER 2021-11-20 13:04 | Outpatient (CLI) | payer MEDICARE, OTHER | END 2021-11-20 13:05 | disposition home or self-care (01) | LOC: LAB.S 13:04 | PROVIDERS: ATTEND Nurse Practitioner Family | DX: Z53.9 Procedure and treatment not carried out, unspecified reason (principal) ==

== ENCOUNTER 2021-11-21 08:59 | Outpatient (CLI) | payer MEDICARE, OTHER ==
[2021-11-21 14:44] LABS: BASOPHILS % (AUTO) 1.3 %; EOSINOPHILS # (AUTO) 0.1 10^3/uL (0.0-0.7); EOSINOPHILS % (AUTO) 2.2 %; HCT - HEMATOCRIT 35.3 % (37.0-47.0); HGB - HEMOGLOBIN 11.7 g/dL (12.0-16.0); LYMPHOCYTES # (AUTO) 0.2 10^3/uL (1.5-3.5); LYMPHOCYTES % (AUTO) 5.1 %; MEAN CORPUSCULAR HEMOGLOBIN 32.4 pg (27.0-31.0); MEAN CORPUSCULAR HGB CONC 33.1 g/dL (32.0-36.0); MEAN CORPUSCULAR VOLUME 97.8 fL (81.0-99.0); MEAN PLATELET VOLUME 10.8 fL (7.9-10.8); MONOCYTES # (AUTO) 0.6 10^3/uL (0.0-1.0); MONOCYTES % (AUTO) 17.8 %; NEUTROPHILS # (AUTO) 2.3 10^3/uL (1.5-6.6); PLT - PLATELET COUNT 288 10^3/uL (130-450); RED BLOOD COUNT 3.61 10^6/uL (4.20-5.40); WHITE BLOOD COUNT 3.1 x10^3/uL (4.8-10.8)
[2021-11-21 15:25] LABS: ALBUMIN 4.1 g/dL (3.2-5.5); ALBUMIN/GLOBULIN RATIO 1.7 (1.0-2.2); ALKALINE PHOSPHATASE 65 IU/L (42-121); ALT ALANINE AMINOTRANSFERASE 14 IU/L (10-60); AST ASPARTATE AMINOTRANSFERASE 20 IU/L (10-42); BILIRUBIN,TOTAL 1.1 mg/dL (0.2-1.0); BUN - BLOOD UREA NITROGEN 29 mg/dL (6-20); CALCIUM 9.3 mg/dL (8.5-10.3); CARBON DIOXIDE - CO2 27 mmol/L (21-32); CHLORIDE 96 mmol/L (101-111); CHOL/HDL RATIO 2.7 (<4.4); CHOLESTEROL 248 mg/dL; CREATININE 0.8 mg/dL (0.4-1.0); GFR - MDRD 71 (>89); GLUCOSE 108 mg/dL (70-100); HDL CHOLESTEROL 93 mg/dL; LDL CHOLESTEROL,CALCULATED 141 mg/dL; LDL/HDL RATIO 1.5 (<4.4); POTASSIUM 3.2 mmol/L (3.5-5.0); SODIUM 133 mmol/L (135-145); TOTAL PROTEIN 6.5 g/dL (6.7-8.2); TRIGLYCERIDES 71 mg/dL; VLDL CHOLESTEROL 14 mg/dL
[2021-11-21 15:33] LABS: THYROID STIMULATING HORMONE 2.72 uIU/mL (0.34-5.60)
== END 2021-11-21 09:00 | disposition home or self-care (01) ==
LOC: LAB.S 08:59
PROVIDERS: ATTEND Nurse Practitioner Family
DX: I10 Essential (primary) hypertension (principal); C85.18 Unspecified B-cell lymphoma, lymph nodes of multiple sites; D64.9 Anemia, unspecified; R73.01 Impaired fasting glucose; Z13.220 Encounter for screening for lipoid disorders; Z87.892 Personal history of anaphylaxis
CPT/HCPCS: 36415; 80053; 80061; 81599; 83721; 84443; 85025; 86003

== ENCOUNTER 2022-05-16 10:27 | Emergency (ER) | payer MEDICARE, OTHER ==
[2022-05-16 10:45] VITALS: BP 114/69
--- NOTE | 2022-05-16 11:30 | XRAY Report ---
PROCEDURE: Foot 3 View RT INDICATIONS: R foot pain TECHNIQUE: 3 views of the foot were acquired. COMPARISON: None FINDINGS: Bones: No fractures or dislocations. No suspicious bony lesions. Soft tissues: No tibiotalar joint effusion. Achilles tendon appears normal. IMPRESSION: No acute fracture. No osseous lesion. If symptoms and/or clinical suspicion for pathology continue, f urther assessment with repeat plain films, or advanced imaging (e.g., CT, MRI, or bone scan) is recom mended for further assessment. Reviewed by: Ian Katz MD on 05/16/2022 11:28 AM [facility] Approved by: Ian Katz MD on 05/16/2022 11:28 AM [facility] Station ID: [id number]
--- NOTE | 2022-05-16 12:02 | ED Physician Documentation ---
PD HPI LOWER EXT INJURY - Stated complaint Stated Complaint: RT FOOT PX - Chief complaint Chief Complaint: Ext Problem - History obtained from History obtained from: Patient, Family - History of Present Illness PD HPI LOW EXT INJURY LOCATION: Right, Foot Pain level max: 8 Pain level now: 8 Improved by: Rest Worsened by: Moving, Palpating Associated symptoms: No: Weakness, Numbness, Tingling, Swelling, Discolored Contributing factors: No: Anticoagulated, Prior ortho surgery, Prosthetic joint - Additional information Additional information: 71-year-old female presents the emergency department with right foot pain. She states is been ongoing for the past 2 months. She states worsening over the past several days. She states she took her son's hydrocodone and felt better. She states she has a history of a fracture in that foot and is concerned about potential refracture. Worse with walking, better with rest. Patient denies any trauma. 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 - Present Medications Home Medications: Ambulatory Orders Medication Instructions Recorded Confirmed Propranolol [Inderal] 80 mg PO DAILY 09/19/14 05/15/19 hydroCHLOROthiazide 25 mg PO DAILY 09/19/14 05/15/19 [Hydrochlorothiazide] Cetirizine [ZyrTEC] 10 mg PO DAILY PRN 08/26/18 05/15/19 Multivit-Min/Iron Fum/Folic AC 2 tab PO DAILY 08/26/18 05/15/19 [Mgjcj-Vawxvii-Ieanbjdl Tablet] Cyclobenzaprine [Flexeril] 10 mg PO TID PRN #20 tablet 05/15/19 HYDROmorphone [Dilaudid] 2 mg PO Q4H #15 tablet 06/02/19 Ondansetron Odt [Zofran] 4 mg TL Q6H PRN #10 tablet 06/02/19 Potassium Chloride [K-Dur] 40 meq PO ONCE #30 tablet 06/02/19 Oxycodone HCl/Acetaminophen 1 - 2 each PO Q6H PRN #14 tablet 06/04/19 [Percocet 5-325 mg Tablet] HYDROcod/ACETAM 5/325 [[place] 5/325] 1 - 2 ea PO Q6H PRN #14 tablet 05/16/22 - Allergies Allergies/Adverse Reactions: Allergies Allergy/AdvReac Type Severity Reaction Status Date / Time doxycycline Allergy Rash Verified 05/16/22 10:41 tetracycline Allergy Unknown Verified 06/04/19 15:05 - Social History Does the pt smoke?: No Smoking Status: Never smoker Does the pt drink ETOH?: Yes Does the pt have substance abuse?: No - Immunizations Immunizations are current?: Yes PD ED PE NORMAL - Vitals Vital signs reviewed: Yes - General General: Alert and oriented X 3, No acute distress - Derm Derm: Warm and dry - Extremities Extremities: Other - Neuro Neuro: Alert and oriented X 3 - Psych Psych: Normal mood, Normal affect - Free text exam Free text exam: Bilateral feet have pes planus. She is nontender over the left foot. The right foot has tenderness along the fifth metatarsal, the entire length. No redness. No swelling. No deformity. Neurovascularly intact. Pain is mainly on the dorsum of the foot Results - Vitals Vitals: Vital Signs - 24 hr 05/16/22 10:42 Temperature 36.6 C Heart Rate 66 Respiratory 16 Rate Blood Pressure 114/69 O2 Saturation 100 Oxygen O2 Source Room air - Rads (name of study) Right foot x-ray Radiology: Final report received, See rad report PD Medical Decision Making - ED course Complexity details: reviewed results, re-evaluated patient, considered differential, d/w patient ED course: 71-year-old female with right foot pain ongoing for several months. X-ray was reviewed, no acute fractures. She has significant pes planus to the bilateral feet. Recommend that she follow-up closely with the tanning drum operator for further care of her feet. We will place her in a postoperative shoe, recommend that she wear stiff soled shoes to help decrease the stress on her feet and have her reevaluated with podiatry. Will prescribe pain medication for home, hydrocodone. Patient counseled regarding signs and symptoms for which I believe and urgent re-evaluation would be necessary. Patient with good understanding of and agreement to plan and is comfortable going home at this time This document was made in part using voice recognition software. While efforts are made to proofread this document, sound alike and grammatical errors may occur. Departure - Departure Disposition: 01 Home, Self Care Clinical Impression: Foot pain, right, Pes planus of both feet Condition: Good Instructions: Tendinitis Foot Follow-Up: Jessica Jarrell ARNP [Primary Care Provider] - Angela Weber DPM [Provider Admit Priv/Credential] - Ankush Junior DPM [Physician No Access] - Curtis Grant DPM [Physician No Access] - Prescriptions: HYDROcod/ACETAM 5/325 [[place] 5/325] 1 - 2 ea PO Q6H PRN #14 tablet PRN Reason: Pain Comments: Please follow-up with the tanning drum operator for further care. You have extremely flat feet which are likely causing pain. Please make sure you are wearing hard soled shoes at all times. You should not be wearing slippers or soft soled shoes as this will likely worsen your pain. Use a cane in your left hand to help take pressure off of your right foot. Your prescriptions were sent to [facility] in [place]. Please follow-up with your doctor for further care. I am prescribing a short course of narcotic pain medication for you. These are potentially dangerous and addictive medications that should be used carefully. These medications may constipate you. Take an nwvb-tjo-pfkfiuu stool softener (docusate) twice daily with plenty of water while taking these medications. If you go 24 hours without a bowel movement, take lwqj-ruc-aogkwke miralax, per package instructions. Do not drink or drive while taking these medications. If you received narcotic or sedating medications while in the emergency department, do not drive for 24 hours. Store this medication in a safe, secure place and out of reach of children. It is a violation of federal law to give or sell this medication to another person or to use in a manner other than prescribed. The ED will not refill narcotic prescriptions, including prescriptions lost or stolen. To dispose of unwanted medications: 1. [facility] at [address] in [place] has a medication drop box. They accept prescription medications (in pill form) Friday through Friday 9:00 a.m. to 5:00 p.m. 2. The [facility] [place] [employer] accepts prescription medications (in pill form only) for disposal year round. Call for more information. 3. Contact the [facility] for the next [facility] sponsored prescription drug collection event. , [phone], or [phone];
== END 2022-05-16 12:14 | disposition home or self-care (01) ==
LOC: ED 10:27
DX: M79.671 Pain in right foot (principal); M21.41 Flat foot [pes planus] (acquired), right foot; M21.42 Flat foot [pes planus] (acquired), left foot
CPT/HCPCS: 99283

== ENCOUNTER 2023-03-05 22:20 | Outpatient (CLI) | payer MEDICARE, OTHER | END 2023-03-05 22:21 | disposition critical access hospital (66) | LOC: EMS 22:20 | DX: S00.03XA Contusion of scalp, initial encounter (principal); R51.9 Headache, unspecified; R42 Dizziness and giddiness; R11.0 Nausea; I10 Essential (primary) hypertension; R00.1 Bradycardia, unspecified; R26.0 Ataxic gait; W01.198A Fall on same level from slipping, tripping and stumbling with subsequent striking against other object, initial encounter; Y92.008 Other place in unspecified non-institutional (private) residence as the place of occurrence of the external cause | CPT/HCPCS: A0425; A0429 ==

== ENCOUNTER 2023-03-05 22:43 | Emergency (ER) | payer MEDICARE, OTHER ==
--- NOTE | 2023-03-05 23:16 | ED Physician Documentation ---
History of Present Illness - Stated complaint Stated Complaint: FALL/DIZZINESS - Chief complaint Chief Complaint: Trauma Hd/Nk - History obtained from History obtained from: Patient - Additonal information Additional information: 72yF not on AC or blood thinners presents s/p mechanical fall today with no LOC, hitting head on concrete garage floor and possibly also on concrete step and/or car. patient has multiple hematomas to R occiput. denies other injury. Review of Systems Eyes: denies: Loss of vision Ears: denies: Drainage/discharge Nose: denies: Epistaxis Skin: reports: Other (ecchymosis L hand) Musculoskeletal: denies: Neck pain, Back pain Neurologic: reports: Head injury. 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 - Present Medications Home Medications: Ambulatory Orders Medication Instructions Recorded Confirmed Propranolol [Inderal] 80 mg PO DAILY 09/19/14 03/05/23 hydroCHLOROthiazide 25 mg PO DAILY 09/19/14 03/05/23 [Hydrochlorothiazide] - Allergies Allergies/Adverse Reactions: Allergies Allergy/AdvReac Type Severity Reaction Status Date / Time doxycycline Allergy Rash Verified 03/05/23 22:54 tetracycline Allergy Unknown Verified 03/05/23 22:54 - Social History Does the pt smoke?: No Smoking Status: Never smoker Does the pt drink ETOH?: Yes Does the pt have substance abuse?: No - Immunizations Immunizations are current?: Yes - POLST Patient has POLST: No PD ED PE NORMAL - Vitals Vital signs reviewed: Yes - General General: Alert and oriented X 3, No acute distress, Well developed/nourished - HEENT HEENT: PERRL, EOMI, Moist mucous membranes, Pharynx benign, Other (2 discrete hematomas to R occiput) - Neck Neck: No bony TTP, Other (c collar in place) - Cardiac Cardiac: RRR - Respiratory Respiratory: No respiratory distress, Clear bilaterally - Abdomen Abdomen: Non tender, Non distended - Back Back: No spinal TTP - Derm Derm: Normal color, Warm and dry, Other (ecchymosis to L dorsum of hand) - Extremities Extremities: No deformity, No tenderness to palpate, Normal ROM s pain, Other (2+ radial pulse LUE. no bony ttp) - Neuro Neuro: Alert and oriented X 3, No motor deficit, No sensory deficit, Normal speech Eye Opening: Spontaneous Motor: Obeys Commands Verbal: Oriented GCS Score: 15 Results - Vitals Vitals: Vital Signs - 24 hr 03/05/23 03/05/23 03/05/23 22:43 22:54 23:09 Temperature 36.3 C L Heart Rate 44 L 49 L 48 L Respiratory 16 17 17 Rate Blood Pressure 178/63 H 178/63 H 161/63 H O2 Saturation 99 99 98 03/05/23 03/06/23 23:28 00:00 Temperature Heart Rate 44 L Respiratory 19 17 Rate Blood Pressure O2 Saturation 100 Oxygen O2 Source Room air PD Medical Decision Making - ED course ED course: 72yF presents to the ED s/p mechanical trip and fall with +HT but no LOC on concrete floor. also with ecchymosis to L dorsum of hand without tenderness. xray hand, CT head and c spine ordered. patient declined pain meds. d/w patient finding of degenerative changes and negative ulnar variance. CT and xrays otherwise negative. plan to f/u with pcp. return precautions given. Departure - Departure Disposition: 01 Home, Self Care Clinical Impression: Fall from standing, Head injury Condition: Stable Instructions: Falls Prevent Home, ED Head Injury Closed Comments: You were seen in the emergency department for Medical evaluation after a fall. Your head CT and cervical spine CT and x-ray of the hand showed no broken bones or bleeding in the brain. Please follow-up with your primary care provider and return to the emergency department if you have any new or worsening symptoms or other concerns. Forms: PCP List
--- NOTE | 2023-03-06 00:13 | XRAY Report ---
PROCEDURE: Hand 2 View LT INDICATIONS: ecchymosis s/p fall TECHNIQUE: 2 views of the hand(s) acquired. COMPARISON: None. FINDINGS: Bones: No fractures or dislocations. Osteoarthritic changes are noted throughout left hand and wris t joints. Negative ulnar variance is seen. No suspicious bony lesions. Soft tissues: No suspicious soft tissue calcifications or masses. IMPRESSION: No acute left hand fracture or dislocation. 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 Reviewed by: Mat Gilliland MD on 03/06/2023 12:12 AM PST Approved by: Mat Gilliland MD on 03/06/2023 12:12 AM PST Station ID: [id number]
--- NOTE | 2023-03-06 00:14 | CT Report ---
PROCEDURE: HEAD WO INDICATIONS: fall, no loc no AC TECHNIQUE: Noncontrast 4.5 mm thick angled axial sections acquired from the foramen magnum to the vertex. For r adiation dose reduction, the following was used: automated exposure control, adjustment of mA and/or kV according to patient size. COMPARISON: None. FINDINGS: Image quality: Excellent. CSF spaces: Basal cisterns are patent. No extra-axial fluid collections. Ventricles are normal in size and shape. Brain: No midline shift. No intracranial masses or hemorrhage. Langley-white matter interface is norm al. Skull and face: Large right parietal-occipital scalp hematoma and swelling is seen. No gross acute s kull fracture. Sinuses: Visualized sinuses and mastoids are clear. IMPRESSION: No acute intracranial pathology. Significant right-sided scalp hematoma and swelling. No gross acute skull fracture. Reviewed by: Mat Bradnon MD on 03/06/2023 12:13 AM PST Approved by: Mat Brandon MD on 03/06/2023 12:13 AM PST Station ID: [id number]
--- NOTE | 2023-03-06 00:19 | CT Report ---
PROCEDURE: CERVICAL SPINE WO INDICATIONS: fall no loc no midline ttp TECHNIQUE: Noncontrast 3 mm thick sections acquired from the skull base to the T4 level. Sagittal and coronal r eformats were then constructed. For radiation dose reduction, the following was used: automated exp osure control, adjustment of mA and/or kV according to patient size. COMPARISON: None. FINDINGS: Image quality: Excellent. Bones: No fractures or dislocations. Loss of disc height, degenerative endplate changes and bilater al facet hypertrophic changes are noted throughout cervical spine. Dorsal disc osteophyte complex for mation at C5-6 and C6-7 levels are seen causing mild central canal stenosis. No significant neural fo raminal narrowing. Visualized superior ribs are intact. Soft tissues: Prevertebral soft tissues are normal in thickness. No paravertebral hematomas. No ap ical pneumothoraces. IMPRESSION: 1. No acute cervical spine fracture or dislocation. 2. Mild degenerative disc disease in mid to lower cervical spine as above. Reviewed by: Mat Gilliland MD on 03/06/2023 12:17 AM PST Approved by: Mat Gilliland MD on 03/06/2023 12:17 AM PST Station ID: [id number]
[2023-03-06 00:53] VITALS: BP 155/60; O2SAT 99
== END 2023-03-06 00:50 | disposition home or self-care (01) ==
LOC: EDUNIT# → ED 22:43
DX: S09.90XA Unspecified injury of head, initial encounter (principal); W18.39XA Other fall on same level, initial encounter; I10 Essential (primary) hypertension
CPT/HCPCS: 99283; 99284

== ENCOUNTER 2023-07-04 06:01 | Emergency (ER) | payer MEDICARE, OTHER ==
--- NOTE | 2023-07-04 06:43 | ED Physician Documentation ---
History of Present Illness - Stated complaint Stated Complaint: THROAT SWELLING/POSS ALLERGIC REACTION - Chief complaint Chief Complaint: Heent - History obtained from History obtained from: Patient - Additonal information Additional information: 72yF with pmh htn (not on lisinopril) presents with acute tongue swelling since 4am. patient is on week 3 of shingles treatment and tried a new cream on her rash today. it provided some relief but now her tongue is swollen. denies dizziness, nausea, chest pain, soa, throat tightness. There is some change to her voice quality however due to tongue swelling. patient has not eaten or drank since last night. 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 - Present Medications Home Medications: Ambulatory Orders Medication Instructions Recorded Confirmed Propranolol [Inderal] 80 mg PO DAILY 09/19/14 07/04/23 hydroCHLOROthiazide 25 mg PO DAILY 09/19/14 07/04/23 [Hydrochlorothiazide] Gabapentin [Neurontin] 300 mg PO TID 07/04/23 07/04/23 - Allergies Allergies/Adverse Reactions: Allergies Allergy/AdvReac Type Severity Reaction Status Date / Time doxycycline Allergy Rash Verified 07/04/23 06:13 tetracycline Allergy Unknown Verified 07/04/23 06:13 - Social History Does the pt smoke?: No Smoking Status: Never smoker Does the pt drink ETOH?: Yes Does the pt have substance abuse?: No - Immunizations Immunizations are current?: Yes - POLST Patient has POLST: No PD ED PE NORMAL - Vitals Vital signs reviewed: Yes - General General: Alert and oriented X 3, No acute distress, Well developed/nourished - HEENT HEENT: Atraumatic, PERRL, EOMI, Moist mucous membranes, Other (moderate tongue swelling. unable to visualize posterior oropharynx) - Cardiac Cardiac: RRR - Respiratory Respiratory: No respiratory distress, Clear bilaterally - Derm Derm: Other (crusted lesions to L anterior chest wall in dermatomal distribution) Results - Vitals Vitals: Vital Signs - 24 hr 07/04/23 06:07 Temperature 36.8 C Heart Rate 52 L Respiratory 16 Rate Blood Pressure 126/98 H O2 Saturation 97 Oxygen O2 Source Room air PD Medical Decision Making - ED course ED course: 72yF presents with angioedema (in the form of tongue swelling) this morning after reporting trying new cream for her shingles rash. denies other symptoms of anaphylaxis but since this is an airway issue I elected to treat aggressively with IV benadryl, pepcid, ivf, solumedrol, and IM epi. Patient has not been exposed to lisinopril. no prior history of hereditary angioedema however 1g txa was administered in event this might be effective. Plan to endorse to incoming daytime ED at 7am shift change for further monitoring. Departure - Departure Clinical Impression: Angioedema Forms: PCP List
[2023-07-04] MEDS ORDERED: TRANEXAMIC ACID 1,000 MG/10 ML VIAL ONE (06:47)
[2023-07-04] MEDS: diphenhydrAMINE INJ 50 MG/ML VIAL IVP STA (06:58)
[2023-07-04] MEDS: FAMOTIDINE 20 MG/2 ML VIAL IVP STA (06:59)
[2023-07-04] MEDS: SODIUM CHLORIDE 0.9% 1,000 ML IV STA (06:59)
[2023-07-04] MEDS: methylPREDNISolone SUCCINATE 125 MG/2 ML VIAL IVP STA (06:59)
[2023-07-04] MEDS: TRANEXAMIC ACID 1,000 MG in SODIUM CHLORIDE 0.9% 100ML 100 ML IV STA (06:59)
[2023-07-04] MEDS: EPINEPHrine 1 MG/ML AMP IM STA ×2 (07:00→08:54)
[2023-07-04] MEDS: EPINEPHrine ABBOJECT 1 MG/10 ML SYRINGE IM STA (07:08)
[2023-07-04 07:45] LABS: BASOPHILS # (AUTO) 0.1 10^3/uL (0.0-0.1); BASOPHILS % (AUTO) 1.4 %; EOSINOPHILS # (AUTO) 0.1 10^3/uL (0.0-0.7); EOSINOPHILS % (AUTO) 2.1 %; HCT - HEMATOCRIT 36.1 % (37.0-47.0); LYMPHOCYTES # (AUTO) 1.1 10^3/uL (1.5-3.5); LYMPHOCYTES % (AUTO) 19.3 %; MEAN CORPUSCULAR HEMOGLOBIN 35.3 pg (27.0-31.0); MEAN CORPUSCULAR HGB CONC 33.2 g/dL (32.0-36.0); MEAN CORPUSCULAR VOLUME 106.2 fL (81.0-99.0); MEAN PLATELET VOLUME 9.8 fL (7.9-10.8); MONOCYTES # (AUTO) 0.9 10^3/uL (0.0-1.0); MONOCYTES % (AUTO) 16.8 %; NEUTROPHILS # (AUTO) 3.3 10^3/uL (1.5-6.6); NEUTROPHILS % (AUTO) 59.3 %; PLT - PLATELET COUNT 343 10^3/uL (130-450); RED CELL DISTRIBUTION WIDTH 14.3 % (12.0-15.0); WHITE BLOOD COUNT 5.6 x10^3/uL (4.8-10.8)
--- NOTE | 2023-07-04 07:57 | ED Physician Documentation ---
ED Addendum - Addendum Addendum: Patient signed out to me by Dr. Samuel at shift change with presentation of angioedema. She has already received a number of medications including TXA and IM epinephrine. On my evaluation she appears to have some mild swelling of the right side of her tongue more so than the left. No lip or uvula swelling, speech seems normal. Tolerating secretions. Will continue to monitor. 07/04/23 07:56 - On reevaluation there is no change. Uvula additionally appears unchanged.. Asking for pain medication due to burning discomfort from prior shingles. Usually takes gabapentin. 07/04/23 08:32 - Patient feels that her tongue is a little bit more swollen on the left side. On reevaluation does not appear to be any significant change. Voice seems normal. Patient is tolerating secretions. Oxygenation is normal. No signs of impending airway compromise.Patient does report that when she was hospitalized for similar presentation in [facility] she says that she needed 2 doses of IM epinephrine before improvement.Will administer an additional dose of epinephrine at this time to see if there is any improvement with this. 07/04/23 09:33 No change in symptoms. 07/04/23 10:22 Feel some slight improvement. 07/04/23 11:41 Doing better. Feels like the swelling has gone down. Is tolerating water. 07/04/23 12:30 - Continued improvement and feels almost back to normal. Improved visualization of posterior pharynx on exam with only minimal edema of tongue. Uvula remains normal in size. Normal phonation. Tolerating secretions. Swallowing without any difficulty. At this point it has been 4 hours since her last dose of IM epinephrine. She has not had any rebound. Patient feels comfortable with plan for discharge. She and are advised on strict return precautions as well as need for close follow-up with primary care provider. Prescriptions including EpiPen were sent to her pharmacy of choice. Departure - Departure Disposition: 01 Home, Self Care Clinical Impression: Angioedema, Neuropathy due to herpes zoster Condition: Stable Instructions: ED Angioedema Prescriptions: predniSONE [Deltasone] 40 mg PO DAILY 3 Days #6 tablet EPINEPHrine [Epinephrine] 0.3 mg IJ ONCE PRN #2 each PRN Reason: Allergy Symptoms Famotidine [Pepcid] 20 mg PO BID 3 Days #6 tablet Comments: You were treated for angioedema Which is swelling of the tongue. Is unclear what is caused this reaction. Your symptoms have improved with treatment and time here. I sent prescriptions to [facility] in [place]. Please make sure you have close follow-up with your primary care doctor. Return to the ER with any worsening. Forms: PCP List Discharge Date/Time: 07/04/23 13:33
[2023-07-04 07:58] LABS: ALBUMIN/GLOBULIN RATIO 1.9 (1.0-2.2); BILIRUBIN,TOTAL 0.6 mg/dL (0.2-1.0); CALCIUM 9.2 mg/dL (8.5-10.3); CREATININE 0.9 mg/dL (0.6-1.3); POTASSIUM 3.7 mmol/L (3.5-4.5); TOTAL PROTEIN 6.1 g/dL (6.4-8.9)
[2023-07-04] MEDS: MORPHINE 2 MG/ML CARPUJECT IVP STA (08:08)
[2023-07-04] MEDS: ACETAMINOPHEN 500 MG TABLET PO STA (12:12)
[2023-07-04] MEDS: LIDOCAINE PATCH 5% TOP STA (12:13)
[2023-07-04 13:17] VITALS: BP 153/66; O2SAT 93
== END 2023-07-04 13:33 | disposition home or self-care (01) ==
LOC: ED 06:01
DX: T78.3XXA Angioneurotic edema, initial encounter (principal); B02.23 Postherpetic polyneuropathy; I10 Essential (primary) hypertension; Z79.899 Other long term (current) drug therapy
CPT/HCPCS: 36415; 80053; 83690; 85025; 96365; 96372; 96375; 99283; 99285; A9270; J1200